=== PATIENT | male | born 1995 | race Caucasian/White ===

== ENCOUNTER 2025-05-23 13:12 | Emergency (ER) | payer MEDICAID ==
[~2025-05-23] VITALS: Ht 177.8 cm; Wt 89.0 kg
[2025-05-23] MEDS: DIPHENHYDRAMINE 50MG/ML VIAL IM ONE (13:59)
[2025-05-23] MEDS: HALOPERIDOL LACTATE 5MG/ML VIAL IM ONE (13:59)
[2025-05-23] MEDS: LORAZEPAM 2MG/ML UD SYRINGE IM SCH (14:00)
[2025-05-23 14:39] VITALS: O2SAT 98
[2025-05-23 15:39] LABS: BASOPHILS % 0.4 % (0.0-2.0); EOSINOPHILS % 0.2 % (0.0-5.0); HEMATOCRIT. 39.3 % (42.0-52.0); HEMOGLOBIN. 13.6 g/dL (14.0-18.0); LYMPHOCYTES % 22.1 % (20.0-50.0); MEAN PLATELET VOLUME 8.3 fl (7.4-10.4); MONOCYTES % 4.9 % (2.0-8.0); NEUTROPHILS % 72.4 % (40.0-76.0); PLATELET 195 x1000/uL (130-400); RED BLOOD CELL COUNT 4.37 mill/uL (4.7-6.1); RED CELL DISTRIBUTION WIDTH 14.0 % (11.6-14.6)
[2025-05-23 16:00] LABS: CREATININE 1.1 mg/dL (0.6-1.3); ETHANOL BLOOD < 10 mg/dL (<10); UREA NITROGEN BLOOD 17 mg/dL (9-23)
[2025-05-23 16:51] LABS: CLARITY URINE CLEAR (CLEAR); COLOR URINE YELLOW (YELLOW); GLUCOSE URINE NEGATIVE (NEGATIVE); KETONES URINE NEGATIVE (NEGATIVE); LEUKOCYTE ESTERASE URINE NEGATIVE (NEGATIVE); NITRITE URINE NEGATIVE (NEGATIVE); OCCULT BLOOD URINE NEGATIVE (NEGATIVE); PH URINE 7.0 (4.5-8.0); PROTEIN URINE NEGATIVE (NEGATIVE); SPECIFIC GRAVITY URINE 1.017 (1.005-1.030); UROBILINOGEN URINE 1.0 E.U./dL (0.2-1.0)
[2025-05-23 17:07] LABS: *AMPHETAMINES SCREEN URINE NEGATIVE (NEGATIVE); *BARBITURATES SCREEN URINE NEGATIVE (NEGATIVE); *BENZODIAZEPINES SCREEN URINE NEGATIVE (NEGATIVE); *COCAINE SCREEN URINE NEGATIVE (NEGATIVE); CANNABINOID URINE SCREEN NEGATIVE (NEGATIVE); ECSTASY MDMA SCREEN URINE NEGATIVE (NEGATIVE); METHADONE URINE SCREEN NEGATIVE (NEGATIVE); OPIATES URINE SCREEN NEGATIVE (NEGATIVE); PHENCYCLIDINE URINE SCREEN NEGATIVE (NEGATIVE)
[2025-05-24] MEDS ORDERED: HYDROXYZINE 25MG TABLET PO PRN (10:00)
[2025-05-24] MEDS: POTASSIUM CHLORIDE 20MEQ/PACKET PO ONE (12:59)
[2025-05-24 14:00] VITALS: BP 129/79; PULSE 81; RESP 18; TEMP 36.7; O2SAT 99
[2025-05-24] MEDS ORDERED: OLANZAPINE 5MG TABLET ODT PO SCH (21:00)
[2025-05-24] MEDS ORDERED: TRAZODONE HCL 50MG TABLET PO PRN (21:00)
== END 2025-05-24 16:54 ==
LOC: EDBD 13:12 → ER 13:12
DX: F29 Unspecified psychosis not due to a substance or known physiological condition (principal); F17.200 Nicotine dependence, unspecified, uncomplicated; Z20.822 Contact with and (suspected) exposure to COVID-19; Z79.899 Other long term (current) drug therapy; Z98.890 Other specified postprocedural states
CPT/HCPCS: 80305; 80048; 81003; 80320; 85025; 36415; 70450; 93005; 96372; 99285; 87426; J1200; J1630; J2060; Z7610; A4606; G0480

== ENCOUNTER 2025-06-07 23:57 | Emergency (ER) | payer MEDICAID ==
[~2025-06-07] VITALS: Ht 175.3 cm; Wt 95.0 kg
[2025-06-07 23:59] VITALS: O2SAT 99
[2025-06-08] MEDS ORDERED: ACET-2708 MT (00:05)
[2025-06-08] MEDS ORDERED: HYDR10TA34 MT (00:05)
[2025-06-08] MEDS: ACETAMINOPHEN 325MG TABLET PO ONE (01:10)
[2025-06-08 01:11] VITALS: BP 138/89; PULSE 100; RESP 20; TEMP 37.1; O2SAT 100
[2025-06-08] MEDS ORDERED: BO1 TP (03:16)
== END 2025-06-08 01:10 | disposition home or self-care (01) ==
LOC: ER 23:57
DX: F41.9 Anxiety disorder, unspecified (principal); Z59.00 Homelessness unspecified; F10.90 Alcohol use, unspecified, uncomplicated; Y90.9 Presence of alcohol in blood, level not specified
CPT/HCPCS: 99283

== ENCOUNTER 2025-06-08 01:18 | Emergency (ER) | payer MEDICAID ==
[~2025-06-08] VITALS: Ht 175.3 cm; Wt 88.0 kg
[~2025-06-08 01:18] MED LIST: ACET-2708 MT; HYDR10TA34 MT
[2025-06-08 01:36] VITALS: BP 143/91; TEMP 36.7; O2SAT 99
[2025-06-08 01:37] VITALS: PULSE 105; RESP 16; O2SAT 99
[2025-06-08] MEDS ORDERED: BO1 TP (03:16)
== END 2025-06-08 03:29 | disposition home or self-care (01) ==
LOC: ER 01:41
DX: T24.202A Burn of second degree of unspecified site of left lower limb, except ankle and foot, initial encounter (principal); F10.90 Alcohol use, unspecified, uncomplicated; X58.XXXA Exposure to other specified factors, initial encounter; Y93.89 Activity, other specified; Y92.89 Other specified places as the place of occurrence of the external cause; Y99.8 Other external cause status; Y90.9 Presence of alcohol in blood, level not specified
CPT/HCPCS: 99282

== ENCOUNTER 2025-08-09 23:16 | Emergency (ER) | payer MEDICAID ==
[~2025-08-09] VITALS: Ht 180.3 cm; Wt 89.0 kg
[~2025-08-09 23:16] MED LIST changes: +BO1 TP
[2025-08-09 23:18] VITALS: BP 142/87; PULSE 95; RESP 18; TEMP 36.7; O2SAT 99
== END 2025-08-10 02:32 | disposition left against medical advice (07) ==
LOC: ER 23:16
DX: R53.1 Weakness (principal); R11.0 Nausea; R42 Dizziness and giddiness
CPT/HCPCS: 99281; 99283